=== PATIENT | female | born 1995 ===

== ENCOUNTER 2022-12-23 09:24 | Outpatient (CLI) | payer BC, SELFPAY ==
--- NOTE | 2022-12-23 09:15 | CRLHL7_ITS ---
For Patients: As a result of the Cures Act, medical imaging exams and procedure reports are released immediately into your electronic medical record. You may view this report before your referring provider. If you have questions, please contact your health care provider. INDICATION: First trimester scan, establish dates. COMPARISON: None. TECHNIQUE: Real-time roblse-scale imaging of the pelvis was performed. FINDINGS: Sonographic imaging demonstrates a single living intrauterine gestation. The embryo demonstrates a regular cardiac rate measuring 180 beats per minute. The embryo`s crown-rump length measurement of 2.2 cm corresponds to a gestational age of 8 weeks 6 days with a sonographic due date of July 29, 2023. There is a normal-appearing yolk sac measuring 3.1 mm. There are no gross abnormalities noted within the embryo at this early state of development. The placenta has not yet developed. The gestational sac has a normal appearance and there is no evidence of a perigestational hemorrhage. The amount of fluid within the sac appears appropriate for gestational age. The cervix is closed. The myometrium appears normal. The ovaries are of normal size. The right ovary measures 3.9 x 2.5 x 2.7 cm and the left ovary measures 2.6 x 1.7 x 1.9 cm. Small corpus luteum cyst of on the right. There are no suspicious fluid collections noted in the cul-de-sac. IMPRESSION: Normal first trimester OB ultrasound exam. Gestational age calculated at 8 weeks 6 days with a sonographic due date of July 29, 2023. Dictated by Vinicius Odell MD @ 12/23/2022 11:16:33 AM (Electronically Signed)
== END 2022-12-23 09:25 | disposition home or self-care (01) ==
LOC: US 09:24
PROVIDERS: Visit Provider Advanced Practice Midwife
DX: Z34.91 Encounter for supervision of normal pregnancy, unspecified, first trimester (principal); Z3A.08 8 weeks gestation of pregnancy
CPT/HCPCS: 76817; 86592; 86703; 86762; 86787; 86803; 86850; 86900; 86901; 87086; 87340

== ENCOUNTER 2022-12-23 10:06 | Outpatient (CLI) | payer BC, SELFPAY ==
[2022-12-23 16:03] LABS: Hepatitis B Surface Antigen* Negative (Negative)
[2022-12-23 16:12] LABS: HIV 1/2/P24 Combo Screen* Negative (Negative)
[2022-12-23 16:20] LABS: Hepatitis C Virus Antibody* Negative (Negative)
[2022-12-24 17:42] LABS: Rapid Plasma Reagin (RPR) Non Reactive (Non Reactive)
[2022-12-24 18:20] LABS: Varicella-Zoster Virus Ab, IgG 832.9 IV
[2022-12-24 18:25] LABS: Rubella Antibody IgG 65.9 IU/mL
== END 2022-12-23 10:07 | disposition home or self-care (01) ==
PROVIDERS: Visit Provider Advanced Practice Midwife
DX: Z34.91 Encounter for supervision of normal pregnancy, unspecified, first trimester (principal); Z3A.08 8 weeks gestation of pregnancy
CPT/HCPCS: 86592; 86703; 86762; 86787; 86803; 86850; 86900; 86901; 87086; 87340